=== PATIENT | male | born 1975 | race Two or more races ===

== ENCOUNTER 2022-04-09 23:19 | Emergency (ER) | payer MEDICAID, OTHER ==
[~2022-04-09] VITALS: Ht 170.2 cm; Wt 73.5 kg
[2022-04-09 23:27] VITALS: BP 158/100
--- NOTE | 2022-04-09 23:27 | NUR ---
[facility]EC 837 FROM HOME FOR CHRONIC ABD PAIN. IS SCHEDULED FOR COLONOSCOPY
[2022-04-09] MEDS ORDERED: HYDROCODONE/APAP 5/325MG TABLET ONE (23:42)
[2022-04-10] MEDS ORDERED: HYDROCODONE/APAP 5/325MG TABLET PO ONE
== END 2022-04-10 00:18 | disposition home or self-care (01) ==
LOC: ER 23:21
DX: R10.32 Left lower quadrant pain (principal); G89.29 Other chronic pain; Z88.5 Allergy status to narcotic agent; Z88.8 Allergy status to other drugs, medicaments and biological substances